=== PATIENT | male | born 1960 | race Caucasian/White ===

== ENCOUNTER 2017-01-21 01:40 | Emergency (ER) | payer OTHER ==
[~2017-01-21] VITALS: Ht 180.3 cm; Wt 85.0 kg
[~2017-01-21 01:40] MED LIST: TAB-TAB PO
[2017-01-21 01:59] VITALS: BP 119/64; PULSE 90; RESP 18; TEMP 97.6; O2SAT 94
[2017-01-21] MEDS ORDERED: SODIUM CHLOR 0.9% 1000 ML INJ 1,000 ML IV SCH (02:00)
[2017-01-21] MEDS ORDERED: SODIUM CHLORIDE 0.9% FLUSH 10 ML FLUSH IVF PRN (02:00)
[2017-01-21 02:18] LABS: AUTOMATED NEUTROPHIL # 3.7 TH/MM3 (1.8-7.7); BASOPHIL # 0.1 TH/MM3 (0-0.2); BASOPHIL % 0.7 % (0.0-2.0); EOSINOPHIL # 0.3 TH/MM3 (0-0.4); EOSINOPHIL % 3.2 % (0.0-4.0); HEMATOCRIT 45.5 % (39.0-51.0); HEMO FLAGS DIFF FINAL; LYMPH % 39.8 % (9.0-44.0); LYMPHOCYTE # 3.1 TH/MM3 (1.0-4.8); MEAN CELL VOLUME 88.2 FL (80.0-100.0); MEAN CORPUSCULAR HEMOGLOBIN 29.9 PG (27.0-34.0); MEAN CORPUSCULAR HGB CONC 33.9 % (32.0-36.0); MONO % 9.1 % (0.0-8.0); NEUT % 47.2 % (16.0-70.0); PLATELET COUNT 197 TH/MM3 (150-450); RED BLOOD COUNT 5.16 MIL/MM3 (4.50-5.90); RED CELL DISTRIBUTION WIDTH 13.4 % (11.6-17.2); WHITE BLOOD COUNT 7.8 TH/MM3 (4.0-11.0)
[2017-01-21 02:42] LABS: ALKALINE PHOSPHATASE 79 U/L (45-117); TOTAL BILIRUBIN ADULT 0.6 MG/DL (0.2-1.0)
[2017-01-21 02:45] LABS: ALT (GPT) 42 U/L (12-78); ANION GAP 9 MEQ/L (5-15); AST (GOT) 36 U/L (15-37); BICARBONATE 26.6 MEQ/L (21.0-32.0); BLOOD UREA NITROGEN 16 MG/DL (7-18); CHLORIDE 104 MEQ/L (98-107); GLOMERULAR FILTRATION RATE 67 ML/MIN (>89); POTASSIUM 4.1 MEQ/L (3.5-5.1); SODIUM (NA) 140 MEQ/L (136-145)
[2017-01-21 02:52] VITALS: BP 108/69; PULSE 84; RESP 18; O2SAT 96
[2017-01-21 04:02] VITALS: BP 113/69; PULSE 78; RESP 18; O2SAT 96
--- NOTE | 2017-01-21 04:08 | PD ---
HPI Chief Complaint: Altered Mental Status Time Seen by Provider: 02:00 Travel History International Travel<30 days: No Contact w/Intl Traveler<30days: No Traveled to known affect area: No History of Present Illness HPI Patient is a 56 year old male who comes in by EMS after he was found sleeping in his car in the middle of the road. Per EMS, he was speaking to bystanders around him, but when paramedics arrived, he refused to talk to them. Per EMS, there was no evidence of trauma on scene. There was absolutely no damage to the car. He has a stamp on his hand from a bar. He is refusing to provide any history. PFSH Past Medical History Blood Disorders: No Anxiety: No Depression: No Heart Rhythm Problems: No Cancer: Yes ([place]) Cardiac Catheterization: No Cardiovascular Problems: No High Cholesterol: No Congestive Heart Failure: No Diabetes: No Diminished Hearing: No Glaucoma: No Hypertension: No Psychiatric: No Myocardial Infarction: No Radiation Therapy: Yes (FEBRUARY 2004) Sickle Cell Disease: No Tetanus Vaccination: Unknown ?: Not Past Surgical History AICD: No Arteriovenous Shunt: No Coronary Artery Bypass Graft: No Insulin Pump: No Joint Replacement: No Pacemaker: No Thoracic Surgery: Yes (LUNG BIOPSY 2005) Other Surgery: Yes (RIGHT NECK NODE ) Social History Alcohol Use: Yes (weekly) Tobacco Use: No Substance Use: No Allergies-Medications (Allergen,Severity, Reaction): Coded Allergies: No Known Allergies (Verified , 12/02/09) Reported Meds & Prescriptions Reported Meds & Active Scripts Active Active Prescriptions or Reported Medications Unobtainable Review of Systems ROS Limitations: Intoxication Physical Exam Narrative GENERAL: Awake and alert, in no acute distress. SKIN: Focused skin assessment warm/dry. No wounds or bruising. HEAD: Atraumatic. Normocephalic. EYES: Pupils equal and round. No scleral icterus. ENT: Mucous membranes pink and moist. NECK: Trachea midline. No JVD. CARDIOVASCULAR: Regular rate and rhythm. No murmur appreciated. RESPIRATORY: No accessory muscle use. Clear to auscultation. Breath sounds equal bilaterally. GASTROINTESTINAL: Abdomen soft, non-tender, nondistended. MUSCULOSKELETAL: No obvious deformities. No clubbing. No cyanosis. No edema. NEUROLOGICAL: Awake and alert. No obvious cranial nerve deficits. Motor grossly within normal limits. Data Data Last Documented VS Vital Signs Date Time Temp Pulse Resp B/P Pulse Ox O2 Delivery O2 Flow Rate FiO2 01/21/17 04:57 81 18 117/67 96 Room Air 01/21/17 01:59 97.6 Orders Complete Blood Count With Diff (01/21/17 02:00) Comprehensive Metabolic Panel (01/21/17 02:00) Blood Glucose (01/21/17 02:00) Ecg Monitoring (01/21/17 02:00) Iv Access Insert/Monitor (01/21/17 02:00) Oximetry (01/21/17 02:00) Sodium Chloride 0.9% Flush (Ns Flush) (01/21/17 02:00) Sodium Chlor 0.9% 1000 Ml Inj (Ns 1000 M (01/21/17 02:00) Alcohol (Ethanol) (01/21/17 02:00) Labs Laboratory Tests Test 01/21/17 02:00 White Blood Count 7.8 TH/MM3 Red Blood Count 5.16 MIL/MM3 Hemoglobin 15.4 GM/DL Hematocrit 45.5 % Mean Corpuscular Volume 88.2 FL Mean Corpuscular Hemoglobin 29.9 PG Mean Corpuscular Hemoglobin 33.9 % Concent Red Cell Distribution Width 13.4 % Platelet Count 197 TH/MM3 Mean Platelet Volume 9.2 FL Neutrophils (%) (Auto) 47.2 % Lymphocytes (%) (Auto) 39.8 % Monocytes (%) (Auto) 9.1 % Eosinophils (%) (Auto) 3.2 % Basophils (%) (Auto) 0.7 % Neutrophils # (Auto) 3.7 TH/MM3 Lymphocytes # (Auto) 3.1 TH/MM3 Monocytes # (Auto) 0.7 TH/MM3 Eosinophils # (Auto) 0.3 TH/MM3 Basophils # (Auto) 0.1 TH/MM3 CBC Comment DIFF FINAL Differential Comment Sodium Level 140 MEQ/L Potassium Level 4.1 MEQ/L Chloride Level 104 MEQ/L Carbon Dioxide Level 26.6 MEQ/L Anion Gap 9 MEQ/L Blood Urea Nitrogen 16 MG/DL Creatinine 1.13 MG/DL Estimat Glomerular Filtration 67 ML/MIN Rate Random Glucose 94 MG/DL Calcium Level 9.2 MG/DL Total Bilirubin 0.6 MG/DL Aspartate Amino Transf 36 U/L (AST/SGOT) Alanine Aminotransferase 42 U/L (ALT/SGPT) Alkaline Phosphatase 79 U/L Total Protein 8.2 GM/DL Albumin 4.2 GM/DL Ethyl Alcohol Level 222 MG/DL [facility] Medical Decision Making Medical Screen Exam Complete: Yes Emergency Medical Condition: Yes Differential Diagnosis intoxication vs dehydration vs electrolyte abnormalities Narrative Course Patient is a 56 year old male BIBEMS after he was found sleeping in his car on the road. Exam shows no evidence of trauma, AOB. IV established, labs sent. Alcohol level is 222, no other abnormalities. Given IVF. Observed in the ED. Eventually, patient admitted to drinking. He denied any accident or trauma. He denies any complaints. Observed in the ED until sober, then discharged home. Advised to avoid alcohol use. Advised to follow up with his doctor. Advised to return to the ED as needed for any worsening symptoms. Diagnosis Primary Impression: Alcohol intoxication Qualified Code: F10.120 - Alcohol intoxication, uncomplicated Patient Instructions: Alcohol Intoxication (ED), General Instructions Scripts Unable to Obtain Active Prescriptions or Reported Meds Condition: Stable Doreen Puentes MD Jan 21, 2017 04:08
[2017-01-21 04:57] VITALS: BP 117/67; PULSE 81; RESP 18; O2SAT 96
[2017-01-21 06:29] VITALS: BP 113/57; PULSE 79; RESP 18; O2SAT 98
== END 2017-01-21 10:16 | disposition home or self-care (01) ==
LOC: NEPE 01:40
DX: F10.120 Alcohol abuse with intoxication, uncomplicated (principal); Y90.7 Blood alcohol level of 200-239 mg/100 ml
CPT/HCPCS: 80053; 80307; 85025; 99283; J7030